=== PATIENT | female | born 1995 | race American Indian/Alaskan Native ===

== ENCOUNTER 2022-01-04 22:11 | Inpatient (IN) | payer MEDICAID ==
[2022-01-04] MEDS ORDERED: TERBUTALINE 1 MG/1 ML INJ SUB-Q PRN (23:14)
[2022-01-04] MEDS ORDERED: CARBOPROST TROMETHAMINE 250 MCG/1 ML INJ IM PRN (23:14)
[2022-01-04] MEDS ORDERED: BUTORPHANOL 2 MG/1 ML INJ IV PRN (23:14)
[2022-01-04] MEDS ORDERED: ePHEDrine SULFATE 50 MG/1 ML INJ IV PRN (23:14)
[2022-01-04] MEDS ORDERED: fentaNYL 100 MCG/2 ML INJ IV PRN (23:14)
[2022-01-04] MEDS ORDERED: METHYLERGONOVINE MALEATE 0.2 MG/ML VIAL IM PRN (23:14)
[2022-01-04] MEDS ORDERED: ACETAMINOPHEN 325 MG TAB PO PRN (23:14)
[2022-01-04] MEDS ORDERED: LACTATED RINGERS 1,000 ML IV SCH (23:15)
--- NOTE | 2022-01-04 23:18 | History and Physical Report ---
History of Present Illness Date of examination: 01/04/22 Date of admission: 01/04/2022 Chief complaint: Contractions History of present illness: 26-year-old at 40-3/7 weeks gestation presents to OB triage reporting regular and painful uterine contractions occurring every 3 to 5 minutes of heart. There is no vaginal bleeding. There is no leaking of fluid. There is good movement. In OB triage, cervical exam was 8 cm dilated. As this patient is an active labor, she is admitted to labor and delivery for expectant management. Past History Past Medical History: no pertinent history Past Surgical History: no surgical history LEGAL RESEARCHER History: chlamydia Family/Genetic History: none Social history: no significant social history - Obstetrical History Expected Date of Delivery: 01/01/22 Actual Gestation: 40 Week(s) 3 Day(s) : 4 Para: 3 Medications and Allergies Allergies Allergy/AdvReac Type Severity Reaction Status Date / Time No Known Allergies Allergy Verified 06/21/16 03:07 Home Medications Medication Instructions Recorded Confirmed Last Taken Type Amoxicillin 500 mg PO BID #14 capsule 06/21/16 Unknown Rx Benzocaine [Oral Pain Relief] 9.35 gm MM BID PRN #1 vial 06/21/16 Unknown Rx Chlorhexidine Mouthwash [Peridex] 118 ml MM BID #1 bottle 06/21/16 Unknown Rx Ibuprofen [Motrin] 600 mg PO Q8H PRN #25 tablet 06/21/16 Unknown Rx Review of Systems All systems: negative - Vital Signs Vital signs: Vital Signs Pulse BP 112 H 111/67 01/04/22 22:14 01/04/22 22:14 Temp Pulse Resp BP Pulse Ox 98.6 F 92 H 20 111/67 100 01/04/22 22:52 01/04/22 23:10 01/04/22 22:52 01/04/22 22:14 01/04/22 23:10 - Physical Exam Breasts: Positive: normal Cardiovascular: Normal S1 Lungs: Positive: Clear to auscultation Abdomen: Positive: normal appearance Genitourinary (Female): Positive: normal external genitalia, normal perenium Vulva: both: normal Vagina: Positive: normal moisture Uterus: Positive: enlarged Adnexa: both: normal Anus/Rectum: Positive: normal perianal skin Extremities: Positive: normal Deep Tendon Reflex Grade: Normal +2 - Obstetrical FHR: category 1 Cervical Dilatation: 8 Cervical Effacement Percentage: 100 station: -2 Uterine Contraction Pattern: Regular Results All other labs normal. Ultrasound: pending Assessment and Plan - Patient Problems (1) 40 weeks gestation of Current Visit: Yes Status: Acute Plan to address problem: care was up-to-date in [place]. She has not received outpatient care after moving to [place]. GBS status is unknown at this time. The patient has no risk factors (per 2010 CDC MMWR guidelines for intrapartum GBS prophylaxis). (2) Postmaturity , 40-42 weeks gestation Current Visit: Yes Status: Acute Plan to address problem: This patient is past her due date. As such, admit to labor and delivery for augmentation of labor. (3) Spontaneous onset of labor Current Visit: Yes Status: Acute Plan to address problem: The patient progressed to 8 cm dilation. She is admitted to labor and delivery for management of active labor.
[2022-01-04] MEDS ORDERED: OXYTOCIN DRIP 30 UNITS/500 ML BAG IV SCH (23:45)
[2022-01-04 23:48] LABS: Hematocrit 28.2 % (30.3-42.9); Hemoglobin 8.9 gm/dl (10.1-14.3); Mean Corpuscular HGB Conc 32 % (30-34); Platelet Count 199 K/mm3 (140-440); Red Blood Count 4.23 M/mm3 (3.65-5.03)
[2022-01-04 23:55] LABS: Mean Corpuscular Volume 67 fl (79-97); Red Cell Distribution Width 20.2 % (13.2-15.2)
--- NOTE | 2022-01-05 00:08 | Procedure Note ---
OB Delivery Note - Delivery Date of Delivery: 01/04/22 Surgeon: GEORGINA VU Estimated blood loss: 100cc - Vaginal Delivery presentation: vertex Delivery position: OA Intrapartum events: precipitous labor- <3hr Delivery induction: none Delivery monitor: external FHT, external uterine Route of delivery: Delivery placenta: spontaneous Delivery cord: 3 umbilical vessels Episiotomy: none Delivery laceration: other (Periurethral laceration) Delivery repair: vicryl Anesthesia: local Delivery comments: This was a precipitous delivery. - Infant A at 1 minute: 8 at 5 minutes: 9 Infant Gender: Female
[2022-01-05] MEDS ORDERED: LANOLIN/ZINC/DIMETHICONE (LANSINOH) 7 GM TP PRN ×2 (00:10→02:33)
[2022-01-05] MEDS ORDERED: BENZOCAINE/MENTHOL 20/0.5% TOP SPRAY 56 GM TP PRN (00:10)
[2022-01-05] MEDS ORDERED: WITCH HAZEL/ GLYCERIN PAD TP PRN ×2 (00:10→02:33)
[2022-01-05] MEDS ORDERED: HYDROcodone/ACETAMINOPHEN 5-325 MG TAB PO PRN (00:10)
[2022-01-05] MEDS ORDERED: TRANEXAMIC ACID 1,000 MG in SODIUM CHLORIDE 0.9% 100 ML IV NR (01:00)
[2022-01-05] MEDS ORDERED: IBUPROFEN 800 MG TAB PO SCH (01:00)
[2022-01-05] MEDS ORDERED: METHYLERGONOVINE MALEATE 0.2 MG/ML VIAL IM ONE (01:20)
[2022-01-05] MEDS ORDERED: PROMETHAZINE 25 MG TAB PO PRN (02:33)
[2022-01-05] MEDS ORDERED: diphenhydrAMINE 25 MG CAP PO PRN (02:33)
[2022-01-05] MEDS ORDERED: MAGNESIUM HYDROXIDE (MOM) ORAL LIQD UDC PO PRN (02:33)
[2022-01-05] MEDS ORDERED: ONDANSETRON 4 MG/2 ML INJ IV PRN (02:33)
[2022-01-05] MEDS ORDERED: PROMETHAZINE 25 MG RECT SUPP PR PRN (02:33)
[2022-01-05 04:32] LABS: Hepatitis B Surface Antigen Non-Reactive (Negative); Hepatitis C Virus Antibody Non-Reactive (NonReactive)
[2022-01-05] MEDS: HYDROcodone/ACETAMINOPHEN 5-325 MG TAB PO PRN (05:17)
--- NOTE | 2022-01-05 06:54 | Procedure Note ---
OB Delivery Note - Delivery Date of Delivery: 01/05/22 Surgeon: GEORGINA VU Director Of Securities And Real Estate: LEBRON SCHAEFFER Estimated blood loss: 100cc - Vaginal Delivery presentation: vertex Delivery position: OA Intrapartum events: precipitous labor- <3hr Delivery induction: none Delivery monitor: external FHT, external uterine Route of delivery: Delivery placenta: spontaneous Delivery cord: 3 umbilical vessels Episiotomy: none Delivery laceration: none - A at 1 minute: 8 at 5 minutes: 9 Gender: Male
[2022-01-05] MEDS: DOCUSATE SODIUM 100 MG CAP PO SCH ×2 (09:14→22:45)
[2022-01-05] MEDS: IBUPROFEN 800 MG TAB PO SCH ×3 (09:14→16:24)
--- NOTE | 2022-01-05 16:17 | Anesthesia Consultation ---
Anesthesia Consult and Med Hx Date of service: 01/05/22 - Airway Anesthetic Teeth Evaluation: Poor ROM Head & Neck: Adequate Mental/Hyoid Distance: Adequate Mallampati Class: Class II Intubation Access Assessment: Probably Good - Cardiac Exam Cardiac Exam: RRR - Pre-Operative Health Status ASA Pre-Surgery Classification: ASA2 Proposed Anesthetic Plan: Epidural, Spinal - Pulmonary Hx Asthma: No - Cardiovascular System Hx Hypertension: No - Central Nervous System Hx Seizures: No Hx Psychiatric Problems: No - Endocrine Hx Renal Disease: No Hx Hypothyroidism: No Hx Hyperthyroidism: No - Hematic Hx Anemia: No Hx Sickle Cell Disease: No - Other Systems Hx Alcohol Use: No
--- NOTE | 2022-01-05 16:25 | Progress Note ---
Spinal Anesthesia Block - Spinal Anesthesia Block Start Time: 00:24 Stop Time: 01:07 Performed by:: SELVIN WHYTE Procedure: Patient is requesting epidural for labor and pain. H&P, labs were reviewed. Patient IDed, all questions and concerns were answered, and consent was signed. Timeout was performed at bedside. Patient in sitting position. Sterile prep and drape was performed. 3ml of 1% lidocaine skin wheal at L[3]- L [4]. Pt st ated she can not hold position due to contractions. [id number] Tuohy epidural needle was advanced to loss of resistance with saline technique 6cm x 3 attempts. 25G spinal needle introduced through epidural needle to the spinal space. Clear CSF. injected .1ml of Precedex in the spinal space. Negative CSF negative blood. Epidural catheter advanced to [15] centimeters. [Negative] Aspiration, test dose 3cc 1.5% Lidocaine with epi - negative. Sterile dressing applied. Patient placed in supine position and 's head was presented, pt delivered.
[2022-01-05] MEDS: ACETAMINOPHEN 325 MG TAB PO PRN (19:35)
[2022-01-06] MEDS: IBUPROFEN 800 MG TAB PO SCH ×4 (00:34→18:49)
[2022-01-06] MEDS: HYDROcodone/ACETAMINOPHEN 5-325 MG TAB PO PRN (03:57)
--- NOTE | 2022-01-06 08:16 | Progress Note ---
Assessment and Plan A: PPD # 1 - stable P: Plan discharge home in am Discharge instructions given Subjective - Subjective Date of service: 01/06/22 Principal diagnosis: PPD #1 Patient reports: appetite normal [place]: doing well Objective - Vital Signs Latest vital signs: Vital Signs Temp Pulse Resp BP Pulse Ox Pulse Ox 01/06/22 00:10 97.8 F 79 18 108/62 99 01/05/22 20:00 98 01/05/22 16:16 98.1 F 64 18 92/51 99 01/05/22 12:06 97.7 F 71 18 108/59 99 Intake and Output 01/05/22 01/06/22 01/06/22 22:59 06:59 14:59 Intake Total 420 Balance 420 Intake: Oral 420 Other: Total, Intake Amount 420 - Exam Breasts: Present: deferred Cardiovascular: Present: Regular rate Lungs: Present: Clear to auscultation Abdomen: Present: soft Vulva: both: normal Uterus: Present: fundal height below umbilicus Extremities: Present: normal Deep Tendon Reflex Grade: Normal +2
--- NOTE | 2022-01-06 08:19 | Discharge Summary ---
Providers - Providers Date of Admission: 01/04/22 23:14 Date of discharge: 01/07/22 Attending physician: GEORGINA VU MD 01/05/22 11:25 Consult to Case Management [CONS] Routine Services Needed at Discharge: Other Notified:: Yes Phone number called:: [phone] Was contact made?: Yes Time called:: 11:25 Comment:: Limited PNC Primary care physician: HEAD PORTER [facility] Hospitalization Reason for admission: active labor Delivery: Episiotomy: none Laceration: none complications: none [place] baby: male Condition at discharge: Good Disposition: 01 HOME / SELF CARE / HOMELESS Plan - Provider Discharge Summary Activity: no sex for 6 weeks Diet: routine Instructions: routine Additional instructions: [] Smoking cessation referral if applicable(refer to patient education folder for contact #) [] Refer to [facility]'s [facility] Booklet Call your doctor immediately for: * Fever > 100.5 * Heavy vaginal bleeding ( >1 pad per hour) * Severe persistent headache * Shortness of breath * Reddened, hot, painful area to leg or breast * Drainage or odor from incision. * Keep incision clean and dry at all times and follow doctor's instructions regarding bathing/showering - Follow up plan Follow up: LYNN ROGERS MD [Staff Physician] - 6 Weeks
[2022-01-06] MEDS: ACETAMINOPHEN 325 MG TAB PO PRN (10:06)
[2022-01-06] MEDS: DOCUSATE SODIUM 100 MG CAP PO SCH ×2 (10:07→22:02)
[2022-01-06 10:11] LABS: Hematocrit 22.9 % (30.3-42.9); Hemoglobin 7.2 gm/dl (10.1-14.3); Mean Corpuscular HGB Conc 31 % (30-34); Platelet Count 184 K/mm3 (140-440); Red Cell Distribution Width 19.9 % (13.2-15.2)
[2022-01-06 10:19] LABS: Mean Corpuscular Volume 67 fl (79-97)
[2022-01-06] MEDS: BUTALB/ACETAMINOPHEN/CAFFEINE TAB PO PRN ×2 (15:56→22:01)
[2022-01-07] MEDS: IBUPROFEN 800 MG TAB PO SCH ×3 (01:17→13:59)
[2022-01-07] MEDS ORDERED: LACTATED RINGERS 1,000 ML IV ONE (17:33)
--- NOTE | 2022-01-07 17:42 | Event Note ---
Date: 01/07/22 (EBP) Pt c/o postural GARCIA unrelieved by conservative measures; denies diplopia, nuchal rigidity, or elevated temp. She requests an epidural blood patch. In 2115, patient sitting. SPD with PVP x 3. L3-4 +BOSSMAN w/NS 15 ml Blood drawn by MICHELLE Knapp from patient's right arm and injected in epidural space. Pt reported immediate relief. VSS throughout Will give LR x 1 liter and patient wants to go home after IVF
[2022-01-07 20:57] VITALS: BP 114/70
== END 2022-01-07 20:20 | disposition home or self-care (01) | DRG 775 ==
LOC: TRG 22:11 → APU 22:12 → LD 23:14 → TRG 23:14 → OB 01-05 05:06
PROVIDERS: ADMIT Obstetrics & Gynecology Gynecology; ATTEND Obstetrics & Gynecology Gynecology
PROC: 10E0XZZ Delivery of Products of Conception, External Approach (ICD-10-PCS; principal; 2022-01-04)
PROC: 3E0R3BZ Introduction of Anesthetic Agent into Spinal Canal, Percutaneous Approach (ICD-10-PCS; 2022-01-04)
PROC: 00HU33Z Insertion of Infusion Device into Spinal Canal, Percutaneous Approach (ICD-10-PCS; 2022-01-04)
DX: O48.0 Post-term pregnancy (principal); Z3A.40 40 weeks gestation of pregnancy; O62.3 Precipitate labor; Z37.0 Single live birth; Z20.822 Contact with and (suspected) exposure to COVID-19
CPT/HCPCS: 36415; 80074; 85027; 86592; 86762; 86850; 86900; 86901; 87806; 99211; G0378; J3490; G0463; J0595; J2590; J7120; U0003